=== PATIENT | female | born 1965 ===

== ENCOUNTER 2023-01-16 05:30 | Day surgery (SDC) | payer OTHER ==
[~2023-01-16] VITALS: Ht 160 cm; Wt 113.4 kg
[~2023-01-16 05:30] MED LIST: HYDROCHLOROTH12.5 MG PO; VASOTEC2.5 MG PO; ZESTRIL20 MG PO
[2023-01-16] MEDS ORDERED: MORGIDOX100 MG PO (15:05)
[2023-01-16] MEDS ORDERED: NAPR500T14 PO (15:05)
== END 2023-01-16 16:25 | disposition home or self-care (01) ==
LOC: CIR.AMB 05:30
PROVIDERS: ATTEND Obstetrics & Gynecology
DX: D25.0 Submucous leiomyoma of uterus (principal); N84.0 Polyp of corpus uteri; N95.0 Postmenopausal bleeding; Z20.822 Contact with and (suspected) exposure to COVID-19; I10 Essential (primary) hypertension